=== PATIENT | female | born 1970 | race African-American/Black ===

== ENCOUNTER → 2020-12-10 15:35 | Outpatient (BNV) | payer OTHER, SELFPAY | PROVIDERS: Visit Provider Internal Medicine Medical Oncology | DX: D50.9 Iron deficiency anemia, unspecified (principal) | CPT/HCPCS: 99213 ==

== ENCOUNTER 2020-12-16 07:26 | Outpatient (REF) | payer OTHER, SELFPAY | END 2020-12-16 07:27 | disposition home or self-care (01) | LOC: HO.MDS 07:26 | PROVIDERS: PCP Internal Medicine; Visit Provider Internal Medicine Medical Oncology | DX: D50.9 Iron deficiency anemia, unspecified (principal) | CPT/HCPCS: 96365; 96366; J1200; J1750; Q0163 ==

== ENCOUNTER 2021-08-13 08:03 | Outpatient (REF) | payer OTHER, SELFPAY | END 2021-08-13 08:04 | disposition home or self-care (01) | LOC: HO.MDS 08:03 | PROVIDERS: Visit Provider Internal Medicine Medical Oncology | DX: D50.9 Iron deficiency anemia, unspecified (principal) | CPT/HCPCS: 96365; 96366; J1200; J1750; Q0163 ==

== ENCOUNTER 2022-12-15 12:48 | Outpatient (REF) | payer OTHER, SELFPAY | END 2022-12-15 12:49 | disposition home or self-care (01) | LOC: HO.MDS 12:48 | PROVIDERS: Visit Provider Internal Medicine Medical Oncology | DX: D50.8 Other iron deficiency anemias (principal) | CPT/HCPCS: 96365; J1756 ==

== ENCOUNTER 2022-12-27 09:53 | Outpatient (REF) | payer OTHER, SELFPAY | END 2022-12-27 09:54 | disposition home or self-care (01) | LOC: HO.MDS 09:53 | PROVIDERS: Visit Provider Internal Medicine Medical Oncology | DX: D50.8 Other iron deficiency anemias (principal) | CPT/HCPCS: 96365; J1756 ==